=== PATIENT | male | born 1950 | race Caucasian/White ===

== ENCOUNTER → 2017-06-29 | Outpatient (CLI) | payer OTHER ==
[~2017-06-29] MED LIST: ACTIGALL300 MG; ALLEGRA180 MG; ANTACID300 MG; CENTRUM SILVER1 EAC1; FLORA-Q CAPSUL1 EACH; IMURAN 50MG TAB50 M1; IRON325; LOPRESSOR 50 MG50 M1; NORVASC 5 MG TAB5 MG; PENTASA; PROBIOTIC & AC1 EACH; REMICADE 1100 MG/VIA; WELCHOL 625 MG625 MG; ZOCOR 10 MG TAB10 MG
[2017-06-29 14:12] LABS: CREATININE 0.8 mg/dL (0.7-1.3)
[2017-07-01 09:08] LABS: ANTI-DNA SCREEN 1 IU/mL (0-9); ANTI-RNP 0.8 AI (0.0-0.9)
== END ==
LOC: MRI 08:41
PROVIDERS: Psychiatry & Neurology Neuromuscular Medicine
DX: G50.1 Atypical facial pain (principal); K50.80 Crohn's disease of both small and large intestine without complications

== ENCOUNTER 2021-11-23 10:48 | Emergency (ER) | payer OTHER ==
[~2021-11-23] VITALS: Ht 182.9 cm; Wt 72.6 kg
[~2021-11-23 10:48] MED LIST changes: -LOPRESSOR 50 MG50 M1; +LOPRESSOR50 PO; -WELCHOL 625 MG625 MG; +WELCHOL 625 MG625 MG PO
[2021-11-23 12:58] LABS: ABSOLUTE NEUTROPHILS 8.7 thou/uL (1.4-8.2); BASOPHILS 0.3 % (0.0-2.0); EOSINOPHILS 0.1 % (0.0-3.0); HEMATOCRIT 40.7 % (42.0-52.0); HEMOGLOBIN 13.4 gm/dL (14.0-18.0); LYMPHOCYTES 9.4 % (24.0-44.0); MCH 31.7 pg (26.0-34.0); MCHC 32.9 g/dL (28.0-37.0); MCV 96.4 fL (80.0-100.0); MONOCYTES 11.6 % (1.0-8.0); PLATELET COUNT 170 thou/uL (150-400); POLYS 78.6 % (36.0-66.0); RBC 4.22 mil/uL (4.50-6.00); RDW 13.5 % (10.5-14.5); WBC 11.1 thou/uL (4.0-11.0)
[2021-11-23 13:04] LABS: CALCIUM 9.4 mg/dL (8.5-10.1); CREATININE 0.6 mg/dL (0.7-1.3)
[2021-11-23 13:11] LABS: ALBUMIN 4.1 g/dL (3.4-5.0); TOTAL BILIRUBIN 3.3 mg/dL (0.2-1.0); TOTAL PROTEIN 8.1 g/dL (6.4-8.2)
[2021-11-23] MEDS ORDERED: CEPHALEXIN500 MG PO (13:30)
[2021-11-23] MEDS ORDERED: BACTRIM DS TAB1 EACH PO (13:30)
[2021-11-23 13:42] VITALS: BP 150/76
== END 2021-11-23 13:45 | disposition home or self-care (01) ==
LOC: ER 10:48
PROVIDERS: Emergency Medicine
DX: L03.113 Cellulitis of right upper limb (principal); J45.909 Unspecified asthma, uncomplicated; Z90.89 Acquired absence of other organs; W45.8XXA Other foreign body or object entering through skin, initial encounter; Y93.89 Activity, other specified; Y92.89 Other specified places as the place of occurrence of the external cause; Y99.8 Other external cause status

== ENCOUNTER 2021-11-25 13:15 | Inpatient (IN) | payer OTHER ==
[~2021-11-25] VITALS: Ht 182.9 cm; Wt 72.6 kg
[~2021-11-25 13:15] MED LIST changes: +BACTRIM DS TAB1 EACH PO; +CEPHALEXIN500 MG PO
[2021-11-25 13:22] VITALS: BP 123/68
[2021-11-25 14:01] LABS: ABSOLUTE NEUTROPHILS 8.1 thou/uL (1.4-8.2); BASOPHILS 0.4 % (0.0-2.0); EOSINOPHILS 1.2 % (0.0-3.0); HEMATOCRIT 36.7 % (42.0-52.0); HEMOGLOBIN 12.6 gm/dL (14.0-18.0); LYMPHOCYTES 7.8 % (24.0-44.0); MCH 32.7 pg (26.0-34.0); MCHC 34.2 g/dL (28.0-37.0); MCV 95.6 fL (80.0-100.0); MONOCYTES 14.9 % (1.0-8.0); PLATELET COUNT 178 thou/uL (150-400); POLYS 75.7 % (36.0-66.0); RBC 3.84 mil/uL (4.50-6.00); RDW 13.3 % (10.5-14.5); WBC 10.8 thou/uL (4.0-11.0)
[2021-11-25 14:11] LABS: CALCIUM 8.5 mg/dL (8.5-10.1); CREATININE 0.9 mg/dL (0.7-1.3); POTASSIUM 3.6 mmol/L (3.5-5.1)
[2021-11-25 14:17] LABS: ALBUMIN 3.2 g/dL (3.4-5.0); TOTAL PROTEIN 7.6 g/dL (6.4-8.2)
--- NOTE | 2021-11-25 18:46 | NUR ---
pt going to ct at this time
--- NOTE | 2021-11-25 18:53 | NUR ---
pt was given Vancomycin at 125mls/hr with 1.25gram dosage contrary to emar charting. Mistake was due to duplicate orders. The 1 gram Vancomycin at 168mls/hr was not given.
[2021-11-26] MEDS ORDERED: NORVASC5 MG PO (00:14)
[2021-11-26 00:57] VITALS: BP 118/81
[2021-11-26] MEDS ORDERED: LIPITOR10 MG PO (04:36)
[2021-11-26 05:14] VITALS: BP 143/64
[2021-11-26 07:54] LABS: CALCIUM 8.5 mg/dL (8.5-10.1); CREATININE 0.8 mg/dL (0.7-1.3); POTASSIUM 3.5 mmol/L (3.5-5.1)
[2021-11-26 18:10] VITALS: BP 131/62
[2021-11-26 21:09] VITALS: BP 132/69
[2021-11-27 05:23] VITALS: BP 160/72
--- NOTE | 2021-11-27 06:18 | NUR ---
patient aox4 makes needs known. new admit for right hand cellulitis. rue has redness.pictures taken and put in the chart. lunch dinner offered. fluids encouraged.antibiotics given per dr. order. pain controlled this shift. patient has been npo this since midnight.patient is up at marquita. patient in bed asleep at this time breathing regular and unlaboured.
--- NOTE | 2021-11-27 09:00 | NUR ---
Chart review. out of room for test this morning.
[2021-11-27 11:01] LABS: HEMATOCRIT 39.4 % (42.0-52.0); HEMOGLOBIN 12.6 gm/dL (14.0-18.0); MCH 31.2 pg (26.0-34.0); MCV 97.6 fL (80.0-100.0); RBC 4.04 mil/uL (4.50-6.00); RDW 13.4 % (10.5-14.5); WBC 7.5 thou/uL (4.0-11.0)
[2021-11-27 11:04] LABS: CALCIUM 8.7 mg/dL (8.5-10.1); CREATININE 0.8 mg/dL (0.7-1.3); MAGNESIUM 1.8 mg/dL (1.8-2.4); POTASSIUM 3.4 mmol/L (3.5-5.1)
--- NOTE | 2021-11-27 14:44 | HC ---
[facility] [place] [address] [place] [address] CONSULTATION Name: SIMA JHA Room #: 433-I ADM IN M.R.#: [id number] Admission: 11/25/21 Attend Phys: Ti Clark MD Discharge: Date of : 54 Report #: [id number] THIS REPORT FOR: cc: Yogesh Wolf MD, Rene P. MD Barry, Joseph W. MD ~ DATE OF SERVICE: 11/26/2021 INFECTIOUS DISEASE CONSULTATION ATTENDING PHYSICIAN: Dr. Clark. REASON FOR EVALUATION: Distal right lower extremity skin and soft tissue infection, suspected thenar abscess with cellulitis extending proximally. HISTORY OF PRESENT ILLNESS: Chart reviewed. The patient examined. This is a 71-year-old gentleman with known history of Crohn's disease, who is on immunosuppressive therapy, who believes around 11/12 he got a splint in his right hand. He felt this was due to a 2 x 4 and was out in the elements. He did pull it out. He did clean it, felt that maybe there was some residual splinter there. He did note over the course of initial period of time had increasing inflammation, redness, swelling, pain associated with the site. He was evaluated by his primary care physician who did additional efforts at debriding the wound. He was treated with empiric therapy including cephalexin. Due to apparent progression despite of the efforts, he was referred to the Emergency Room. Again, they undertook additional debridement, started on Bactrim in addition to extending the Keflex. However, due to worsening, he continued to note a more systemic illness with poor p.o. intake, fever to 101, some mild encephalopathy and progression up the arm including erythema, some adenopathy involving the axilla. He was subsequently referred and was recommended for admission. Surgery evaluation is pending. Plain film of the hand was otherwise unremarkable. Coronavirus testing was negative. Did undergo CT of the upper extremity, this showed changes consistent with diffuse cellulitis of the hand and forearm without evidence of fluid collection. Blood cultures collected at time of admission are sterile thus far. He was empirically started on antibiotic therapy, combination of cefepime and vancomycin. ALLERGIES: None known. CURRENT MEDICATIONS: Include amlodipine, vancomycin, cefepime, colesevelam, metoprolol, atorvastatin, p.r.n. ondansetron as needed. PAST MEDICAL HISTORY: Crohn's disease, on immunosuppressive therapy; previous bowel obstruction with partial resection, asthma, previous appendectomy. [address] [address] CONSULTATION Name: SIMA JHA Room #: 433-I [facility]#: [id number] Admission: 11/25/21 Attend Phys: Ti Clark MD Discharge: Date of : 54 Report #: [id number] SOCIAL HISTORY: No illicit drug use. No tobacco or ethanol use. FAMILY HISTORY: Noncontributory. REVIEW OF SYSTEMS: Otherwise, unremarkable. Denies any significant pulmonary or gastrointestinal related complaints. PHYSICAL EXAMINATION: GENERAL: Alert, cooperative. He is lucid, somewhat undernourished. VITAL SIGNS: Temperature 98, pulse 74, respirations 20, blood pressure is 131/62. SKIN: Warm, dry, no rashes. HEENT: Normocephalic. Extraocular muscles intact. NECK: Supple. LUNGS: Clear breath sounds. HEART: Regular. I do not appreciate a murmur. ABDOMEN: Soft, nontender, nondistended. EXTREMITIES: Distal right extremity was evaluated. Duhspmki-ac-ufsufh inflammatory changes with erythema and swelling localized on the thenar eminence, webspace between the thumb and index finger. There appears to be some subcutaneous fluid that is more typical of fluctuance. There is a scant amount of drainage on the dressing. GENITOURINARY AND RECTAL: Deferred. LABORATORY DATA: Sed rate of 35. CRP of 67. Electrolytes: Sodium 140, potassium 3.5, chloride 106, bicarbonate is 23, anion gap of 11, BUN and creatinine 12 and 0.8, glucose of 102. Blood cultures sterile thus far. IMAGING: As noted above. Lactic acid of 0.8. ASSESSMENT AND PLAN: Distal right upper extremity injury involving a puncture following what appears to be a wooden sliver, real question whether it was subtotally removed. Certainly, it seems to be secondarily infected. Would presume a Staphylococcus or Streptococcus etiology, although he has been on treatment that has been presumably ineffective. Seems a little early to be fungal. Continue the antibacterials for now. I do think he would benefit from operative debulking of the site. I suspect there is still a foreign body that is nidus of the infection. Continue to monitor expectantly. We will add [address] [address] CONSULTATION Name: JHASIMA Talia Room #: 433-I ADM IN M.R.#: [id number] Admission: 11/25/21 Attend Phys: Ti Clark MD Discharge: Date of : 54 Report #: [id number] incentive spirometry, at risk for additional complications. Continue supportive care. <ELECTRONICALLY SIGNED> By: Jose J Baker MD 11/27/21 1444 [id number] Joes J Baker MD /nt
--- NOTE | 2021-11-27 15:17 | NUR ---
AMBULATING IN ROOM, DRESSING CHANGED TO RIGHT HAND, A&OX4, HOME MEDICATIONS ORDERED AND STOOL SAMPLE WAITING TO BE COLLECTED.
[2021-11-27 19:51] VITALS: BP 136/78
--- NOTE | 2021-11-28 03:23 | NUR ---
Pt A/O X4 AND IS UP AD CAMDEN. ABLE TO MAKE NEEDS KNOWN. VSS. MEDICATIONS GIVEN PER MAR. C/O RIGHT HAND PAIN/TENDERNESS. PRN PAIN MEDICATION GIVEN. CALL LIGHT IS WITHIN REACH. PT IS PROGRESSING TOWARDS PLAN OF CARE DC GOALS
[2021-11-28 07:30] VITALS: BP 132/70
--- NOTE | 2021-11-28 18:37 | NUR ---
UP AMBULATING IN ROOM, FALL PRECAUTIONS MAINTAINED. A&O X4, STATES FEELING BETTER TODAY. DRESSING CHANGED C/D/I.
[2021-11-28 19:42] VITALS: BP 147/74
--- NOTE | 2021-11-29 03:15 | NUR ---
PT IS A/O X4 AND IS UP AD CAMDEN. VSS. AFEBRILE. MEDICATIONS GIVEN PER MAR. PT C/O PAIN TO RIGHT HAND. PRN PAIN MEDICATION GIVEN DIRECTED. PT CALLS OUT APPROPRIATELY FOR ASSISTANCE.
[2021-11-29 09:09] VITALS: BP 139/82
[2021-11-29] MEDS ORDERED: ALLEGRA ALLERG180 MG PO (10:08)
--- NOTE | 2021-11-29 12:22 | NUR ---
ASSUMED PT CARE THIS AM. PT IS ALERT & ORIENTED X4. PT HAS IV SITE ON LFA AND HAS BEEN INFUSING ANTIBIOTICS PER ORDERED. PT IS ON ROOM AIR. PT IS UP AD CAMDEN. PT C/O OF PAIN AND GIVEN TYLENOL PER PT REQUEST. PT TOLERATED DIET AND MEDICATION WELL. PT IS ON THE CHAIR WATCHING TV. WILL CONTINUE TO MONITOR PT. FOLLOW POC.
[2021-11-29 16:00] VITALS: BP 142/74
--- NOTE | 2021-11-29 16:35 | NUR ---
A #4F SINGLE LUMEN PICC WAS PLACED PER HOSPITAL POLICY AFTER A BEDSIDE TIMEOUT WAS COMPLETED. THE LINE WAS TRIMMED TO 53CM AND ADVANCED WITHOUT DIFFICULTY. RISKS OF DVT AND INFECTION WERE DISCUSSED WITH THE PATIENT PRIOR TO INSERTION AND HE VERBALIZED UNDERSTANDING. THE LINE WAS CONFIRMED AT 2CM EXTERNAL USING SHERLOCK 3CG AND RELEASED FOR USE
[2021-11-29 19:42] VITALS: BP 148/67
--- NOTE | 2021-11-30 03:54 | NUR ---
PT IS A/O X4 AND IS UP AD CAMDEN. VSS. MEDICATION GIVEN PER MAR. PRN PAIN MEDICATION GIVEN DIRECTED. CALL LIGHT IS WITHIN REACH. PT IS PROGRESSING TOWARDS PLAN OF CARE DC GOALS.
[2021-11-30 07:11] LABS: HEMATOCRIT 36.2 % (42.0-52.0); HEMOGLOBIN 11.8 gm/dL (14.0-18.0); MCH 31.9 pg (26.0-34.0); MCHC 32.7 g/dL (28.0-37.0); MCV 97.6 fL (80.0-100.0); RBC 3.71 mil/uL (4.50-6.00); RDW 13.3 % (10.5-14.5); WBC 6.8 thou/uL (4.0-11.0)
[2021-11-30 07:24] LABS: CREATININE 0.8 mg/dL (0.7-1.3); POTASSIUM 3.8 mmol/L (3.5-5.1)
[2021-11-30 07:30] VITALS: BP 162/82
--- NOTE | 2021-11-30 11:11 | NUR ---
A/O X 4. ROOM AIR. AD CAMDEN. LEFT UPPER ARM SINGLE LUMEN PICC LINE. RIGHT HAND CELLULITIS AND ALONG WRIST-RED, WARM, SWOLLEN WRAPPED IN KERLIX. TOLERATIGN VANCOMYCIN AND CEFEPIME. HAD A HEADACHE TYLENOL GIVEN
[2021-11-30 16:11] VITALS: BP 120/77
[2021-11-30 19:53] VITALS: BP 148/80
--- NOTE | 2021-11-30 23:00 | NUR ---
ASSUMED CARE OF PT AT 1915. PT IS A&OX4. IS ON ROOM AIR. DENIES PAIN IN RIGHT HAND & FOREARM WITH CELLULITIES. REDNESS, WARM, & INDURATION NOTED. WITH IMPROVEMENT. MEPELIX DRSG TO RIGHT HAND C/D/I. CONTINUES ON ORAL & IV ABTS. IS STABLE. IS UP AD CAMDEN WITH STEADY GAIT. HOURLY ROUNDING CONTINED THIS SHIFT. LABS & VITALS REVIEWED. PT IS CURRENTLY IN ROOM, IN BED, WATCHING TV. CALL LIGHT WITHIN REACH. WILL CONTINUE TO MONITOR.
[2021-12-01 05:55] LABS: ABSOLUTE NEUTROPHILS 4.2 thou/uL (1.4-8.2); EOSINOPHILS 7.3 % (0.0-3.0); HEMATOCRIT 37.6 % (42.0-52.0); HEMOGLOBIN 12.3 gm/dL (14.0-18.0); LYMPHOCYTES 18.4 % (24.0-44.0); MCH 31.9 pg (26.0-34.0); MCHC 32.7 g/dL (28.0-37.0); MCV 97.6 fL (80.0-100.0); MONOCYTES 12.2 % (1.0-8.0); PLATELET COUNT 276 thou/uL (150-400); POLYS 61.1 % (36.0-66.0); RBC 3.85 mil/uL (4.50-6.00); RDW 13.3 % (10.5-14.5); WBC 6.9 thou/uL (4.0-11.0)
[2021-12-01 06:28] LABS: CALCIUM 8.6 mg/dL (8.5-10.1); CREATININE 0.8 mg/dL (0.7-1.3); MAGNESIUM 2.1 mg/dL (1.8-2.4); POTASSIUM 3.7 mmol/L (3.5-5.1)
[2021-12-01 07:36] VITALS: BP 133/82
[2021-12-01] MEDS ORDERED: PEPCID20 MG PO (11:12)
[2021-12-01] MEDS ORDERED: TYLENOL EXTRA500 MG PO (11:12)
[2021-12-01] MEDS ORDERED: FIRVANQ50 MG/1 ML PO (11:12)
[2021-12-01 13:58] VITALS: BP 133/82
== END 2021-12-01 14:59 | disposition home or self-care (01) | DRG 603 ==
LOC: ER 13:15 → 4S 20:20 → EROBS 20:20 → 4S 11-26 20:22
PROVIDERS: Emergency Medicine; Hospitalist; Nurse Practitioner; Nurse Practitioner Family; Specialist; ADMIT Internal Medicine; ATTEND Internal Medicine
PROC: 05HY33Z Insertion of Infusion Device into Upper Vein, Percutaneous Approach (ICD-10-PCS; principal; 2021-11-29)
DX: L03.113 Cellulitis of right upper limb (principal); K50.90 Crohn's disease, unspecified, without complications; L02.512 Cutaneous abscess of left hand; D84.9 Immunodeficiency, unspecified; J45.909 Unspecified asthma, uncomplicated; I10 Essential (primary) hypertension; E78.5 Hyperlipidemia, unspecified; S69.91XA Unspecified injury of right wrist, hand and finger(s), initial encounter; M10.9 Gout, unspecified; Z20.822 Contact with and (suspected) exposure to COVID-19; Z82.49 Family history of ischemic heart disease and other diseases of the circulatory system; Z90.49 Acquired absence of other specified parts of digestive tract; Z79.899 Other long term (current) drug therapy; X58.XXXA Exposure to other specified factors, initial encounter; Y93.89 Activity, other specified; Y92.89 Other specified places as the place of occurrence of the external cause; Y99.8 Other external cause status
CPT/HCPCS: 10100; 10102; 27000